=== PATIENT | female | born 1970 | race African-American/Black ===

== ENCOUNTER 2018-03-29 07:08 | Observation (INO) ==
[2018-03-29] MEDS ORDERED: NITROGLYCERIN 2% OINT 1 INCH/GM PACK TOP STA (07:46)
[2018-03-29] MEDS ORDERED: ASPIRIN 325 MG TABLET PO STA (07:46)
[2018-03-29 07:59] LABS: Basophils % 0.2 % (0.0-0.8); Eosinophils % 0.6 % (0.00-10.9); Hematocrit 41.8 VOL% (35.7-47.0); Hemoglobin 13.8 GM/DL (12.0-16.0); Immature Granulocytes % 0.3 %; Immature Granulocytes Absolute 0.02 #; Lymphocytes # 2.1 10*3/uL (1.4-4.0); Lymphocytes % 33.9 % (21.3-54.2); Mean Corpuscular Hemoglobin 31 PG (27-34); Mean Corpuscular Volume 92.9 FL (87-102); Mean Platelet Volume 10.4 FL (9.6-12.0); Monocytes # 0.6 10*3/uL (0.11-0.8); Monocytes % 9.4 % (1.7-12.7); Neutrophils # 3.5 10*3/uL (1.4-7.4); Neutrophils % 55.6 % (38.7-73.9); Platelet Count 341 T/CUMM (130-400); Red Cell Distribution Width 14.6 % (9.3-17.3); White Blood Count 6.3 T/CUMM (4-12)
[2018-03-29 08:26] LABS: INR 0.9; Partial Thromboplastin Time 27.7 SECS (0-40)
[2018-03-29 08:27] LABS: Alanine Aminotransferase 36 U/L (13-56); Albumin 3.7 G/DL (3.4-5.0); Alkaline Phosphatase 104 U/L (45-117); Aspartate Amino Transferase 20 U/L (0-37); Bilirubin,Total < 0.39 MG/DL (0.2-1.0); Blood Urea Nitrogen 17 MG/DL (7-18); Calcium 8.6 MG/DL (8.5-10.1); Glucose 92 MG/DL (74-106); Osmolality,Calculated 282.3 MOS/KG (273-304); Potassium 4.1 MMOL/L (3.5-5.1); Sodium 141 MMOL/L (136-145); Total Protein 7.5 G/DL (6.4-8.3)
[2018-03-29 08:33] LABS: Apearance,Urine CLEAR (Clear); Bilirubin,Urine Negative (Negative); Blood, Urine Negative (Negative); Glucose,Urine (UA) Negative (Negative); Ketones,Urine Negative (Negative); Mucus,Urine Occasional /LPF (Occasional); Nitrite,Urine Negative (Negative); Protein,Urine Negative; RBC,Urine 1 /HPF (0-4); Squamous Epithelial Cell,Urine Occasional /HPF (0-10); Urine Color Yellow (Yellow); Urine Specific Gravity 1.019 (1.001-1.035); Urine Urobilinogen < 2.0 EU/DL (0.2-1.0); WBC,Urine <1 /HPF (0-6)
[2018-03-29 08:41] LABS: Barbiturates Screen,Urine Negative (Negative); Benzodiazepines Screen,Urine Negative (Negative); Cannabinoid Screen,Urine Negative (Negative); Opiate Screen,Urine Negative (Negative); Phencyclidine Screen,Urine Negative (Negative)
[2018-03-29] MEDS ORDERED: MORPHINE 4 MG/1 ML VIAL ONE (09:57)
[2018-03-29] MEDS ORDERED: MEPERIDINE 50 MG/1 ML VIAL ONE (10:04)
[2018-03-29] MEDS ORDERED: MEPERIDINE 50 MG/1 ML VIAL IV STA (10:10)
[2018-03-29] MEDS ORDERED: ACETAMINOPHEN 325 MG TABLET PO PRN (11:50)
[2018-03-29] MEDS: SODIUM CHLORIDE 0.9% 1,000 ML IV SCH ×2 (12:43→21:24)
[2018-03-29] MEDS: PANTOPRAZOLE 40 MG TABLET PO SCH (12:44)
[2018-03-29] MEDS: DOCUSATE SODIUM 100 MG CAPSULE PO SCH ×2 (12:45→21:25)
[2018-03-29] MEDS: ENOXAPARIN 40 MG/0.4 ML SYRINGE SUBCUT SCH (12:45)
[2018-03-29] MEDS ORDERED: PROMETHAZINE 25 MG TABLET PO PRN (14:52)
[2018-03-29] MEDS ORDERED: KETOROLAC 30 MG/1 ML VIAL IV ONE (16:33)
[2018-03-29] MEDS ORDERED: ESCITALOPRAM 10 MG TABLET PO SCH (21:00)
[2018-03-30] MEDS ORDERED: LEVOTHYROXINE 100 MCG TABLET PO SCH (07:00)
[2018-03-30 12:01] VITALS: BP 118/82
[2018-03-30] MEDS: SODIUM CHLORIDE 0.9% 1,000 ML IV SCH ×2 (12:16→13:20)
[2018-03-30] MEDS: DOCUSATE SODIUM 100 MG CAPSULE PO SCH (12:16)
[2018-03-30] MEDS: PANTOPRAZOLE 40 MG TABLET PO SCH (12:16)
[2018-03-30] MEDS: ENOXAPARIN 40 MG/0.4 ML SYRINGE SUBCUT SCH (13:20)
== END 2018-03-30 14:30 | disposition home or self-care (01) ==
LOC: N.ED 07:08 → N.EDINP 07:08 → N.TELES 12:33
PROVIDERS: ADMIT Family Medicine; ATTEND Family Medicine

== ENCOUNTER 2018-09-27 15:22 | Observation (INO) ==
[2018-09-27] MEDS ORDERED: ACETAMINOPHEN 325 MG TABLET PO PRN (15:58)
[2018-09-27] MEDS ORDERED: hydrALAZINE 20 MG/1 ML VIAL IV PRN (16:04)
[2018-09-27] MEDS: PROMETHAZINE 25 MG/1 ML VIAL IM PRN ×2 (16:26→21:24)
[2018-09-27] MEDS: DEXTROSE 5% NACL 0.9% 1,000 ML IV SCH (16:26)
[2018-09-27] MEDS: PANTOPRAZOLE 40 MG VIAL IV SCH (16:27)
[2018-09-27 16:44] LABS: Basophils % 0.3 % (0.0-0.8); Eosinophils # 0.1 10*3/uL (0.0-0.87); Eosinophils % 1.1 % (0.00-10.9); Hemoglobin 13.8 GM/DL (12.0-16.0); Immature Granulocytes % 0.4 %; Immature Granulocytes Absolute 0.03 #; Lymphocytes # 2.6 10*3/uL (1.4-4.0); Lymphocytes % 36.8 % (21.3-54.2); Mean Corpuscular HGB Conc 30.7 GM/DL (32-36); Mean Corpuscular Hemoglobin 29 PG (27-34); Mean Corpuscular Volume 95.1 FL (87-102); Mean Platelet Volume 10.6 FL (9.6-12.0); Monocytes # 0.7 10*3/uL (0.11-0.8); Monocytes % 10.2 % (1.7-12.7); Neutrophils # 3.6 10*3/uL (1.4-7.4); Neutrophils % 51.2 % (38.7-73.9); Platelet Count 417 T/CUMM (130-400); Red Blood Count 4.73 MC/CUMM (3.8-5.5); Red Cell Distribution Width 14.6 % (9.3-17.3); White Blood Count 7.1 T/CUMM (4-12)
[2018-09-27 17:02] LABS: Alanine Aminotransferase 33 U/L (13-56); Albumin 3.5 G/DL (3.4-5.0); Alkaline Phosphatase 103 U/L (45-117); Aspartate Amino Transferase 19 U/L (0-37); Bilirubin,Total < 0.39 MG/DL (0.2-1.0); Blood Urea Nitrogen 14 MG/DL (7-18); Calcium 8.5 MG/DL (8.5-10.1); Glucose 82 MG/DL (74-106); Osmolality,Calculated 276.5 MOS/KG (273-304); Potassium 3.7 MMOL/L (3.5-5.1); Sodium 139 MMOL/L (136-145); Total Protein 7.9 G/DL (6.4-8.3)
[2018-09-27 20:41] LABS: Apearance,Urine CLEAR (Clear); Bilirubin,Urine Negative (Negative); Blood, Urine Negative (Negative); Glucose,Urine (UA) Negative (Negative); Ketones,Urine Negative (Negative); Mucus,Urine Occasional /LPF (Occasional); Nitrite,Urine Negative (Negative); Protein,Urine Negative; RBC,Urine 1 /HPF (0-4); Urine Color Straw (Yellow); Urine Specific Gravity 1.005 (1.001-1.035); Urine Urobilinogen < 2.0 EU/DL (0.2-1.0)
[2018-09-27] MEDS ORDERED: DOCUSATE SODIUM 100 MG CAPSULE PO SCH (21:00)
[2018-09-28] MEDS: DEXTROSE 5% NACL 0.9% 1,000 ML IV SCH ×3 (00:45→18:54)
[2018-09-28 04:56] LABS: Basophils % 0.3 % (0.0-0.8); Eosinophils # 0.1 10*3/uL (0.0-0.87); Hematocrit 38.6 VOL% (35.7-47.0); Hemoglobin 12.1 GM/DL (12.0-16.0); Immature Granulocytes % 0.3 %; Immature Granulocytes Absolute 0.02 #; Lymphocytes # 2.6 10*3/uL (1.4-4.0); Lymphocytes % 41.6 % (21.3-54.2); Mean Corpuscular HGB Conc 31.3 GM/DL (32-36); Mean Corpuscular Hemoglobin 29 PG (27-34); Mean Corpuscular Volume 93.5 FL (87-102); Mean Platelet Volume 10.6 FL (9.6-12.0); Monocytes # 0.8 10*3/uL (0.11-0.8); Monocytes % 13.4 % (1.7-12.7); Neutrophils # 2.7 10*3/uL (1.4-7.4); Neutrophils % 43.4 % (38.7-73.9); Platelet Count 361 T/CUMM (130-400); Red Blood Count 4.13 MC/CUMM (3.8-5.5); Red Cell Distribution Width 14.6 % (9.3-17.3); White Blood Count 6.3 T/CUMM (4-12)
[2018-09-28 05:23] LABS: Osmolality,Calculated 287.7 MOS/KG (273-304); Potassium 3.2 MMOL/L (3.5-5.1)
[2018-09-28] MEDS ORDERED: LEVOTHYROXINE 200 MCG TABLET PO SCH (06:30)
[2018-09-28] MEDS: PANTOPRAZOLE 40 MG VIAL IV SCH (08:21)
[2018-09-28] MEDS: POTASSIUM CHLORIDE 20 MEQ TABLET PO PRN ×4 (14:11→22:36)
[2018-09-28] MEDS: PIPERACILLIN/TAZOBACTAM 3,375 MG in SODIUM CHLORIDE 0.9% 100 ML IV SCH (18:52)
[2018-09-28] MEDS: traMADol 50 MG TABLET PO PRN (22:11)
[2018-09-29] MEDS: PIPERACILLIN/TAZOBACTAM 3,375 MG in SODIUM CHLORIDE 0.9% 100 ML IV SCH ×3 (01:20→17:00)
[2018-09-29] MEDS: DEXTROSE 5% NACL 0.9% 1,000 ML IV SCH ×2 (04:26→15:08)
[2018-09-29] MEDS: PANTOPRAZOLE 40 MG VIAL IV SCH (09:21)
[2018-09-29] MEDS: traMADol 50 MG TABLET PO PRN ×2 (09:21→16:59)
[2018-09-30] MEDS: PIPERACILLIN/TAZOBACTAM 3,375 MG in SODIUM CHLORIDE 0.9% 100 ML IV SCH ×2 (01:16→09:55)
[2018-09-30] MEDS: DEXTROSE 5% NACL 0.9% 1,000 ML IV SCH ×2 (06:34→06:35)
[2018-09-30 07:06] VITALS: BP 114/73
[2018-09-30] MEDS: PANTOPRAZOLE 40 MG VIAL IV SCH (09:54)
== END 2018-09-30 10:46 | disposition home or self-care (01) ==
LOC: N.5E
PROVIDERS: ADMIT Family Medicine; ATTEND Family Medicine

== ENCOUNTER 2019-05-09 12:47 | Observation (INO) ==
[2019-05-09] MEDS ORDERED: MORPHINE 4 MG/1 ML VIAL IV STA (13:16)
[2019-05-09] MEDS ORDERED: NITROGLYCERIN 2% OINT 1 INCH/GM PACK TOP STA (13:16)
[2019-05-09] MEDS ORDERED: ASPIRIN 325 MG TABLET PO STA (13:16)
[2019-05-09] MEDS ORDERED: ENOXAPARIN 100 MG/ML SYRINGE SUBCUT STA (13:16)
[2019-05-09] MEDS ORDERED: ONDANSETRON 4 MG/2 ML VIAL IV STA (13:16)
[2019-05-09 14:15] LABS: Apearance,Urine CLEAR (Clear); Bilirubin,Urine Negative (Negative); Blood, Urine Negative (Negative); Glucose,Urine (UA) Negative (Negative); Hyaline Casts,Urine 1 /LPF (0-3); Ketones,Urine Negative (Negative); Mucus,Urine Occasional /LPF (Occasional); Nitrite,Urine Negative (Negative); Protein,Urine Negative; Squamous Epithelial Cell,Urine Occasional /HPF (0-10); Urine Color Yellow (Yellow); Urine Specific Gravity 1.017 (1.001-1.035); Urine Urobilinogen < 2.0 EU/DL (0.2-1.0); WBC,Urine 1 /HPF (0-6)
[2019-05-09 14:17] LABS: Basophils % 0.3 % (0.0-0.8); Eosinophils # 0.1 10*3/uL (0.0-0.87); Eosinophils % 0.9 % (0.00-10.9); Hematocrit 40.6 VOL% (35.7-47.0); Immature Granulocytes % 0.4 %; Immature Granulocytes Absolute 0.03 #; Lymphocytes # 3.1 10*3/uL (1.4-4.0); Lymphocytes % 40.9 % (21.3-54.2); Mean Corpuscular Volume 92.3 FL (87-102); Mean Platelet Volume 10.2 FL (9.6-12.0); Monocytes % 10.8 % (1.7-12.7); Neutrophils % 46.7 % (38.7-73.9); Platelet Count 359 T/CUMM (130-400); Red Cell Distribution Width 14.2 % (9.3-17.3); White Blood Count 7.6 T/CUMM (4-12)
[2019-05-09 14:35] LABS: PT Patient Result 10.8 SECS (9.6-12.2); Partial Thromboplastin Time 29.4 SECS (20.8-36.0)
[2019-05-09 14:37] LABS: Alanine Aminotransferase 33 U/L (13-56); Albumin 3.2 G/DL (3.4-5.0); Alkaline Phosphatase 110 U/L (45-117); Aspartate Amino Transferase 20 U/L (0-37); Bilirubin,Total < 0.39 MG/DL (0.2-1.0); Blood Urea Nitrogen 14 MG/DL (7-18); Calcium 8.6 MG/DL (8.5-10.1); Estimated Glom Filtration Rate 140 ML/MIN; Glucose 85 MG/DL (74-106); Osmolality,Calculated 278.4 MOS/KG (273-304); Total Protein 7.4 G/DL (6.4-8.3)
[2019-05-09] MEDS ORDERED: DOCUSATE SODIUM 100 MG CAPSULE PO PRN (15:24)
[2019-05-09] MEDS ORDERED: IBUPROFEN 400 MG TABLET PO PRN (15:24)
[2019-05-09] MEDS ORDERED: ZALEPLON 5 MG CAPSULE PO PRN (15:24)
[2019-05-09] MEDS ORDERED: PROMETHAZINE 25 MG/1 ML VIAL IM PRN (15:24)
[2019-05-09] MEDS ORDERED: BISACODYL 5 MG TABLET PO PRN (15:24)
[2019-05-09] MEDS ORDERED: guaiFENesin/DM ER 600-30 MG TABLET PO PRN (15:24)
[2019-05-09] MEDS ORDERED: MAGNESIUM SULF RIDER 2 GM in PREMIX 1 EACH IV PRN (15:43)
[2019-05-09] MEDS ORDERED: MAGNESIUM SULF RIDER 4 GM in PREMIX 1 EACH IV PRN (15:43)
[2019-05-09 15:57] LABS: HDL Cholesterol 45 MG/DL (40-60); Risk Ratio 3.96; Thyroid Stimulating Hormone < 0.005 uIU/ml (0.358-3.74); Triglycerides 73 MG/DL (2-150); VLDL CHOLESTEROL 14.6 MG/DL
[2019-05-09 16:07] LABS: Barbiturates Screen,Urine Negative (Negative); Benzodiazepines Screen,Urine Negative (Negative); Cannabinoid Screen,Urine Negative (Negative); Opiate Screen,Urine Negative (Negative); Phencyclidine Screen,Urine Negative (Negative)
[2019-05-09] MEDS: PANTOPRAZOLE 40 MG TABLET PO SCH (16:20)
[2019-05-09] MEDS ORDERED: INFLUENZA VIRUS VACCINE 0.5 ML SYRINGE IM ONE (17:43)
[2019-05-09] MEDS: NITROGLYCERIN SL 0.4 MG TABLET SL PRN (17:44)
[2019-05-09] MEDS ORDERED: ESCITALOPRAM 10 MG TABLET PO SCH (21:00)
[2019-05-09] MEDS: METOPROLOL TARTRATE 25 MG TABLET PO SCH (22:19)
[2019-05-10 05:12] LABS: Calcium 8.5 MG/DL (8.5-10.1)
[2019-05-10] MEDS ORDERED: LEVOTHYROXINE 200 MCG TABLET PO SCH (06:30)
[2019-05-10] MEDS: NITROGLYCERIN SL 0.4 MG TABLET SL PRN (06:40)
[2019-05-10] MEDS ORDERED: POTASSIUM CHLORIDE 20 MEQ TABLET PO ONE (07:47)
[2019-05-10] MEDS ORDERED: ASPIRIN EC 81 MG TABLET PO SCH (09:00)
[2019-05-10] MEDS: PANTOPRAZOLE 40 MG TABLET PO SCH (11:02)
[2019-05-10] MEDS: METOPROLOL TARTRATE 25 MG TABLET PO SCH (11:04)
[2019-05-10 12:59] VITALS: BP 103/64
[2019-05-10] MEDS ORDERED: ENOXAPARIN 40 MG/0.4 ML SYRINGE SUBCUT SCH (13:30)
== END 2019-05-10 16:11 | disposition home or self-care (01) ==
LOC: N.EDINP 12:47 → N.ED 12:47 → N.2W 16:31
PROVIDERS: ADMIT Hospitalist; ATTEND Hospitalist

== ENCOUNTER 2020-05-22 12:50 | Inpatient (IN) ==
[2020-05-22 14:21] LABS: Basophils % 0.1 % (0.0-0.8); Eosinophils # 0.1 10*3/uL (0.0-0.87); Eosinophils % 0.7 % (0.00-10.9); Hematocrit 40.9 VOL% (35.7-47.0); Hemoglobin 13.3 GM/DL (12.0-16.0); Immature Granulocytes % 0.3 %; Immature Granulocytes Absolute 0.03 #; Lymphocytes # 2.5 10*3/uL (1.4-4.0); Lymphocytes % 26.4 % (21.3-54.2); Mean Corpuscular HGB Conc 32.5 GM/DL (32-36); Mean Platelet Volume 9.5 FL (9.6-12.0); Monocytes % 9.4 % (1.7-12.7); Neutrophils % 63.1 % (38.7-73.9); Platelet Count 373 T/CUMM (130-400); Red Blood Count 4.35 MC/CUMM (3.8-5.5); Red Cell Distribution Width 14.2 % (9.3-17.3); White Blood Count 9.4 T/CUMM (4-12)
[2020-05-22 14:35] LABS: Bilirubin,Urine Negative (Negative); Blood, Urine Negative (Negative); Glucose,Urine (UA) Negative (Negative); Ketones,Urine Negative (Negative); Nitrite,Urine Negative (Negative); Protein,Urine Negative; RBC,Urine 2 /HPF (0-4); Squamous Epithelial Cell,Urine Occasional /HPF (0-10); Urine Appearance CLEAR (Clear); Urine Color Yellow (Yellow); Urine Specific Gravity > 1.060 (1.001-1.035); WBC,Urine 9 /HPF (0-6)
[2020-05-22] MEDS: SODIUM CHLORIDE 0.9% 1,000 ML IV SCH (15:07)
[2020-05-22] MEDS: HYDROmorphone 2 MG/1 ML VIAL IV PRN ×3 (15:09→23:03)
[2020-05-22] MEDS: PIPERACILLIN/TAZOBACTAM 3,375 MG in SODIUM CHLORIDE 0.9% 100 ML IV SCH (16:26)
[2020-05-22] MEDS: PROMETHAZINE 25 MG/1 ML VIAL IM PRN (19:37)
[2020-05-22] MEDS: DOCUSATE SODIUM 100 MG CAPSULE PO SCH (23:09)
[2020-05-22] MEDS ORDERED: traZODone 50 MG TABLET PO ONE (23:18)
[2020-05-22] MEDS ORDERED: SERTRALINE 100 MG TABLET PO ONE (23:19)
[2020-05-23] MEDS: PIPERACILLIN/TAZOBACTAM 3,375 MG in SODIUM CHLORIDE 0.9% 100 ML IV SCH ×3 (00:28→16:21)
[2020-05-23] MEDS: HYDROmorphone 2 MG/1 ML VIAL IV PRN ×4 (05:01→21:56)
[2020-05-23] MEDS: PROMETHAZINE 25 MG/1 ML VIAL IM PRN (05:02)
[2020-05-23 05:45] LABS: Basophils % 0.3 % (0.0-0.8); Eosinophils # 0.1 10*3/uL (0.0-0.87); Eosinophils % 1.2 % (0.00-10.9); Hematocrit 36.4 VOL% (35.7-47.0); Hemoglobin 11.8 GM/DL (12.0-16.0); Immature Granulocytes % 0.4 %; Immature Granulocytes Absolute 0.03 #; Lymphocytes % 26.3 % (21.3-54.2); Mean Corpuscular HGB Conc 32.4 GM/DL (32-36); Mean Corpuscular Volume 94.1 FL (87-102); Mean Platelet Volume 9.7 FL (9.6-12.0); Monocytes % 11.2 % (1.7-12.7); Neutrophils % 60.6 % (38.7-73.9); Platelet Count 318 T/CUMM (130-400); Red Blood Count 3.87 MC/CUMM (3.8-5.5); Red Cell Distribution Width 14.2 % (9.3-17.3); White Blood Count 7.6 T/CUMM (4-12)
[2020-05-23] MEDS: PANTOPRAZOLE 40 MG TABLET PO SCH (06:29)
[2020-05-23] MEDS: LEVOTHYROXINE 125 MCG TABLET PO SCH (06:29)
[2020-05-23] MEDS: SODIUM CHLORIDE 0.9% 1,000 ML IV SCH ×3 (08:43→16:23)
[2020-05-23] MEDS: DOCUSATE SODIUM 100 MG CAPSULE PO SCH ×2 (08:43→20:24)
[2020-05-23] MEDS: ENOXAPARIN 40 MG/0.4 ML SYRINGE SUBCUT SCH (08:46)
[2020-05-23] MEDS ORDERED: PANTOPRAZOLE 40 MG VIAL IV SCH (09:00)
[2020-05-23 10:20] LABS: Osmolality,Calculated 274.5 MOS/KG (273-304)
[2020-05-23] MEDS: POTASSIUM CHLORIDE 20 MEQ TABLET PO PRN ×3 (12:23→16:21)
[2020-05-23] MEDS: traZODone 50 MG TABLET PO SCH (20:23)
[2020-05-23] MEDS: SERTRALINE 100 MG TABLET PO SCH (20:23)
[2020-05-24] MEDS: PIPERACILLIN/TAZOBACTAM 3,375 MG in SODIUM CHLORIDE 0.9% 100 ML IV SCH ×3 (01:37→17:40)
[2020-05-24] MEDS: SODIUM CHLORIDE 0.9% 1,000 ML IV SCH ×3 (01:38→16:00)
[2020-05-24] MEDS: LEVOTHYROXINE 125 MCG TABLET PO SCH (06:09)
[2020-05-24] MEDS: PANTOPRAZOLE 40 MG TABLET PO SCH (06:09)
[2020-05-24] MEDS: HYDROmorphone 2 MG/1 ML VIAL IV PRN ×4 (06:11→20:54)
[2020-05-24] MEDS: ENOXAPARIN 40 MG/0.4 ML SYRINGE SUBCUT SCH (08:26)
[2020-05-24] MEDS: ASPIRIN EC 81 MG TABLET PO SCH (08:26)
[2020-05-24] MEDS: DOCUSATE SODIUM 100 MG CAPSULE PO SCH ×2 (08:26→20:54)
[2020-05-24] MEDS: traZODone 50 MG TABLET PO SCH (20:53)
[2020-05-24] MEDS: SERTRALINE 100 MG TABLET PO SCH (20:54)
[2020-05-25] MEDS: PIPERACILLIN/TAZOBACTAM 3,375 MG in SODIUM CHLORIDE 0.9% 100 ML IV SCH ×3 (00:55→16:16)
[2020-05-25] MEDS: LEVOTHYROXINE 125 MCG TABLET PO SCH (06:28)
[2020-05-25] MEDS: PANTOPRAZOLE 40 MG TABLET PO SCH (06:28)
[2020-05-25] MEDS: SODIUM CHLORIDE 0.9% 1,000 ML IV SCH ×3 (09:17→21:30)
[2020-05-25] MEDS: ASPIRIN EC 81 MG TABLET PO SCH (09:21)
[2020-05-25] MEDS: ACETAMINOPHEN 325 MG TABLET PO PRN (09:21)
[2020-05-25] MEDS: ENOXAPARIN 40 MG/0.4 ML SYRINGE SUBCUT SCH (09:22)
[2020-05-25] MEDS: DOCUSATE SODIUM 100 MG CAPSULE PO SCH ×2 (09:23→20:46)
[2020-05-25] MEDS: traMADol 50 MG TABLET PO PRN ×2 (12:34→20:44)
[2020-05-25] MEDS: traZODone 50 MG TABLET PO SCH (20:44)
[2020-05-25] MEDS: SERTRALINE 100 MG TABLET PO SCH (20:44)
[2020-05-25] MEDS ORDERED: IBUPROFEN 400 MG TABLET PO PRN (21:00)
[2020-05-25] MEDS ORDERED: HYDROmorphone 2 MG/1 ML VIAL IV ONE (22:48)
[2020-05-26] MEDS: SODIUM CHLORIDE 0.9% 1,000 ML IV SCH ×4 (00:05→23:52)
[2020-05-26] MEDS: PIPERACILLIN/TAZOBACTAM 3,375 MG in SODIUM CHLORIDE 0.9% 100 ML IV SCH ×3 (00:06→17:48)
[2020-05-26] MEDS: ACETAMINOPHEN 325 MG TABLET PO PRN ×4 (03:03→17:48)
[2020-05-26] MEDS: traMADol 50 MG TABLET PO PRN ×3 (03:04→20:29)
[2020-05-26] MEDS: PANTOPRAZOLE 40 MG TABLET PO SCH (06:25)
[2020-05-26] MEDS: LEVOTHYROXINE 125 MCG TABLET PO SCH (06:25)
[2020-05-26 06:57] LABS: Basophils % 0.3 % (0.0-0.8); Eosinophils # 0.1 10*3/uL (0.0-0.87); Eosinophils % 1.6 % (0.00-10.9); Hematocrit 33.7 VOL% (35.7-47.0); Hemoglobin 10.8 GM/DL (12.0-16.0); Immature Granulocytes % 0.6 %; Immature Granulocytes Absolute 0.04 #; Lymphocytes # 2.8 10*3/uL (1.4-4.0); Lymphocytes % 45.1 % (21.3-54.2); Mean Corpuscular Volume 95.2 FL (87-102); Monocytes % 8.9 % (1.7-12.7); Neutrophils % 43.5 % (38.7-73.9); Platelet Count 372 T/CUMM (130-400); Red Blood Count 3.54 MC/CUMM (3.8-5.5); Red Cell Distribution Width 14.6 % (9.3-17.3); White Blood Count 6.3 T/CUMM (4-12)
[2020-05-26 07:13] LABS: Calcium 7.7 MG/DL (8.5-10.1); Osmolality,Calculated 279.1 MOS/KG (273-304)
[2020-05-26] MEDS: ASPIRIN EC 81 MG TABLET PO SCH (08:56)
[2020-05-26] MEDS: ENOXAPARIN 40 MG/0.4 ML SYRINGE SUBCUT SCH (08:56)
[2020-05-26] MEDS: DOCUSATE SODIUM 100 MG CAPSULE PO SCH ×2 (08:56→20:28)
[2020-05-26] MEDS: POTASSIUM CHLORIDE 20 MEQ TABLET PO PRN ×3 (08:57→13:09)
[2020-05-26] MEDS: traZODone 50 MG TABLET PO SCH (20:29)
[2020-05-26] MEDS: SERTRALINE 100 MG TABLET PO SCH (20:29)
[2020-05-27] MEDS: PIPERACILLIN/TAZOBACTAM 3,375 MG in SODIUM CHLORIDE 0.9% 100 ML IV SCH ×2 (01:09→09:52)
[2020-05-27] MEDS: ACETAMINOPHEN 325 MG TABLET PO PRN ×2 (01:11→11:30)
[2020-05-27] MEDS: LEVOTHYROXINE 125 MCG TABLET PO SCH (06:30)
[2020-05-27] MEDS: PANTOPRAZOLE 40 MG TABLET PO SCH (06:30)
[2020-05-27] MEDS: traMADol 50 MG TABLET PO PRN ×3 (06:30→20:52)
[2020-05-27] MEDS: ENOXAPARIN 40 MG/0.4 ML SYRINGE SUBCUT SCH (09:52)
[2020-05-27] MEDS: DOCUSATE SODIUM 100 MG CAPSULE PO SCH ×2 (09:52→20:49)
[2020-05-27] MEDS: ASPIRIN EC 81 MG TABLET PO SCH (09:52)
[2020-05-27] MEDS: metroNIDAZOLE INJ 500 MG in PREMIX 1 EACH IV SCH ×2 (14:30→20:53)
[2020-05-27] MEDS: PROMETHAZINE 25 MG/1 ML VIAL IM PRN ×2 (14:38→20:48)
[2020-05-27] MEDS: CIPROFLOXACIN INJ 400 MG in PREMIX 1 EACH IV SCH (17:07)
[2020-05-27] MEDS: SODIUM CHLORIDE 0.9% 1,000 ML IV SCH (20:45)
[2020-05-27] MEDS: traZODone 50 MG TABLET PO SCH (20:48)
[2020-05-27] MEDS: SERTRALINE 100 MG TABLET PO SCH (20:48)
[2020-05-28] MEDS: PROMETHAZINE 25 MG/1 ML VIAL IM PRN ×4 (03:20→21:19)
[2020-05-28] MEDS: metroNIDAZOLE INJ 500 MG in PREMIX 1 EACH IV SCH ×4 (03:22→21:21)
[2020-05-28] MEDS: CIPROFLOXACIN INJ 400 MG in PREMIX 1 EACH IV SCH ×2 (05:20→17:03)
[2020-05-28] MEDS: LEVOTHYROXINE 125 MCG TABLET PO SCH (06:58)
[2020-05-28] MEDS: PANTOPRAZOLE 40 MG TABLET PO SCH (06:58)
[2020-05-28 08:13] LABS: Basophils % 0.3 % (0.0-0.8); Eosinophils # 0.1 10*3/uL (0.0-0.87); Eosinophils % 1.7 % (0.00-10.9); Hematocrit 37.8 VOL% (35.7-47.0); Hemoglobin 11.9 GM/DL (12.0-16.0); Immature Granulocytes % 0.8 %; Immature Granulocytes Absolute 0.05 #; Lymphocytes # 2.4 10*3/uL (1.4-4.0); Lymphocytes % 37.3 % (21.3-54.2); Mean Corpuscular HGB Conc 31.5 GM/DL (32-36); Mean Corpuscular Volume 95.2 FL (87-102); Mean Platelet Volume 9.7 FL (9.6-12.0); Neutrophils % 49.9 % (38.7-73.9); Platelet Count 393 T/CUMM (130-400); Red Blood Count 3.97 MC/CUMM (3.8-5.5); Red Cell Distribution Width 14.9 % (9.3-17.3); White Blood Count 6.3 T/CUMM (4-12)
[2020-05-28] MEDS: DOCUSATE SODIUM 100 MG CAPSULE PO SCH ×2 (09:55→21:22)
[2020-05-28] MEDS: ASPIRIN EC 81 MG TABLET PO SCH (09:55)
[2020-05-28] MEDS: traMADol 50 MG TABLET PO PRN (09:55)
[2020-05-28] MEDS: ENOXAPARIN 40 MG/0.4 ML SYRINGE SUBCUT SCH (09:58)
[2020-05-28] MEDS: SODIUM CHLORIDE 0.9% 1,000 ML IV SCH ×4 (10:44→23:00)
[2020-05-28] MEDS: SERTRALINE 100 MG TABLET PO SCH (21:22)
[2020-05-28] MEDS: traZODone 50 MG TABLET PO SCH (21:22)
[2020-05-29] MEDS: metroNIDAZOLE INJ 500 MG in PREMIX 1 EACH IV SCH ×2 (03:20→08:15)
[2020-05-29] MEDS: PROMETHAZINE 25 MG/1 ML VIAL IM PRN (03:20)
[2020-05-29] MEDS: SODIUM CHLORIDE 0.9% 1,000 ML IV SCH ×2 (03:53→08:15)
[2020-05-29] MEDS: PANTOPRAZOLE 40 MG TABLET PO SCH (05:53)
[2020-05-29] MEDS: LEVOTHYROXINE 125 MCG TABLET PO SCH (05:53)
[2020-05-29] MEDS: CIPROFLOXACIN INJ 400 MG in PREMIX 1 EACH IV SCH (05:59)
[2020-05-29 08:04] VITALS: BP 126/88
== END 2020-05-29 09:20 | disposition home or self-care (01) | DRG 392 ==
LOC: PREOBSVTOIN 13:11 → N.5E 13:21
PROVIDERS: ADMIT Family Medicine; ATTEND Family Medicine

== ENCOUNTER 2020-07-13 08:08 | Inpatient (IN) ==
[2020-07-13] MEDS ORDERED: ONDANSETRON 4 MG/2 ML VIAL ONE (10:34)
[2020-07-13] MEDS ORDERED: PROMETHAZINE 25 MG/1 ML VIAL ONE (10:44)
[2020-07-13] MEDS ORDERED: PROMETHAZINE INJ 25 MG in SODIUM CHLORIDE 0.9% 50 ML IV STA (10:51)
[2020-07-13 12:07] LABS: Basophils % 0.3 % (0.0-0.8); Eosinophils # 0.1 10*3/uL (0.0-0.87); Eosinophils % 0.8 % (0.00-10.9); Hemoglobin 12.1 GM/DL (12.0-16.0); Immature Granulocytes % 0.3 %; Immature Granulocytes Absolute 0.02 #; Lymphocytes # 2.8 10*3/uL (1.4-4.0); Lymphocytes % 42.4 % (21.3-54.2); Mean Corpuscular HGB Conc 32.7 GM/DL (32-36); Mean Corpuscular Volume 93.9 FL (87-102); Mean Platelet Volume 9.7 FL (9.6-12.0); Monocytes % 9.4 % (1.7-12.7); Neutrophils % 46.8 % (38.7-73.9); Platelet Count 361 T/CUMM (130-400); Red Blood Count 3.94 MC/CUMM (3.8-5.5); Red Cell Distribution Width 15.5 % (9.3-17.3); White Blood Count 6.6 T/CUMM (4-12)
[2020-07-13 12:28] LABS: Alanine Aminotransferase 25 U/L (13-56); Albumin 3.1 G/DL (3.4-5.0); Alkaline Phosphatase 76 U/L (45-117); Amylase 32 U/L (25-115); Aspartate Amino Transferase 26 U/L (0-37); Bilirubin,Total < 0.39 MG/DL (0.2-1.0); Blood Urea Nitrogen 14 MG/DL (7-18); Calcium 8.2 MG/DL (8.5-10.1); Estimated Glom Filtration Rate 165 ML/MIN; Glucose 81 MG/DL (74-106); Osmolality,Calculated 280.3 MOS/KG (273-304); Total Protein 7.1 G/DL (6.4-8.3)
[2020-07-13] MEDS ORDERED: PROMETHAZINE 25 MG TABLET PO PRN (14:05)
[2020-07-13] MEDS ORDERED: ACETAMINOPHEN 325 MG TABLET PO PRN (14:05)
[2020-07-13] MEDS ORDERED: traMADol 50 MG TABLET PO PRN (14:35)
[2020-07-13] MEDS: PROMETHAZINE 25 MG/1 ML VIAL IM PRN (17:14)
[2020-07-13] MEDS: ACETAMINOPHEN/CODEINE 300-30 MG TABLET PO PRN (17:14)
[2020-07-13] MEDS: SODIUM CHLORIDE 0.9% 1,000 ML IV SCH (17:30)
[2020-07-13] MEDS: PIPERACILLIN/TAZOBACTAM 3,375 MG in SODIUM CHLORIDE 0.9% 100 ML IV SCH (17:30)
[2020-07-13 20:06] LABS: Bacteria,Urine Occasional /HPF (Few); Bilirubin,Urine Negative (Negative); Blood, Urine Negative (Negative); Glucose,Urine (UA) Negative (Negative); Ketones,Urine Negative (Negative); Mucus,Urine Occasional /LPF (Occasional); Nitrite,Urine Negative (Negative); Protein,Urine Negative; Squamous Epithelial Cell,Urine Occasional /HPF (0-10); Urine Appearance CLEAR (Clear); Urine Color Yellow (Yellow); Urine Specific Gravity 1.059 (1.001-1.035); Urine Urobilinogen < 2.0 EU/DL (0.2-1.0)
[2020-07-13] MEDS: traZODone 50 MG TABLET PO SCH (20:36)
[2020-07-13] MEDS: SERTRALINE 100 MG TABLET PO SCH (20:36)
[2020-07-13] MEDS: DOCUSATE SODIUM 100 MG CAPSULE PO SCH (20:36)
[2020-07-13] MEDS: ENOXAPARIN 40 MG/0.4 ML SYRINGE SUBCUT SCH (20:37)
[2020-07-14] MEDS: PIPERACILLIN/TAZOBACTAM 3,375 MG in SODIUM CHLORIDE 0.9% 100 ML IV SCH ×2 (00:39→09:57)
[2020-07-14 05:45] LABS: Basophils % 0.3 % (0.0-0.8); Eosinophils # 0.1 10*3/uL (0.0-0.87); Eosinophils % 1.1 % (0.00-10.9); Hematocrit 36.6 VOL% (35.7-47.0); Hemoglobin 12.1 GM/DL (12.0-16.0); Immature Granulocytes % 0.5 %; Immature Granulocytes Absolute 0.03 #; Lymphocytes # 2.5 10*3/uL (1.4-4.0); Lymphocytes % 41.5 % (21.3-54.2); Mean Corpuscular HGB Conc 33.1 GM/DL (32-36); Mean Corpuscular Volume 94.1 FL (87-102); Mean Platelet Volume 9.9 FL (9.6-12.0); Neutrophils % 46.6 % (38.7-73.9); Platelet Count 358 T/CUMM (130-400); Red Blood Count 3.89 MC/CUMM (3.8-5.5); Red Cell Distribution Width 15.6 % (9.3-17.3); White Blood Count 6.1 T/CUMM (4-12)
[2020-07-14] MEDS: LEVOTHYROXINE 125 MCG TABLET PO SCH (05:46)
[2020-07-14 06:03] LABS: Calcium 7.6 MG/DL (8.5-10.1); Osmolality,Calculated 280.3 MOS/KG (273-304)
[2020-07-14] MEDS: ASPIRIN EC 81 MG TABLET PO SCH (09:55)
[2020-07-14] MEDS: DOCUSATE SODIUM 100 MG CAPSULE PO SCH ×2 (09:55→20:30)
[2020-07-14] MEDS: PANTOPRAZOLE 40 MG VIAL IV SCH (09:56)
[2020-07-14] MEDS: ACETAMINOPHEN/CODEINE 300-30 MG TABLET PO PRN ×3 (09:56→22:29)
[2020-07-14] MEDS: ERTAPENEM 1,000 MG in SODIUM CHLORIDE 0.9% 100 ML IV SCH (16:41)
[2020-07-14] MEDS: SODIUM CHLORIDE 0.9% 1,000 ML IV SCH ×4 (19:05→20:40)
[2020-07-14] MEDS: SERTRALINE 100 MG TABLET PO SCH (20:31)
[2020-07-14] MEDS: ENOXAPARIN 40 MG/0.4 ML SYRINGE SUBCUT SCH (20:31)
[2020-07-14] MEDS: traZODone 50 MG TABLET PO SCH (20:31)
[2020-07-15] MEDS: ACETAMINOPHEN/CODEINE 300-30 MG TABLET PO PRN (04:39)
[2020-07-15] MEDS: SODIUM CHLORIDE 0.9% 1,000 ML IV SCH ×3 (04:42→20:15)
[2020-07-15] MEDS: LEVOTHYROXINE 125 MCG TABLET PO SCH (07:24)
[2020-07-15] MEDS: DOCUSATE SODIUM 100 MG CAPSULE PO SCH ×2 (09:56→20:14)
[2020-07-15] MEDS: ASPIRIN EC 81 MG TABLET PO SCH (09:56)
[2020-07-15] MEDS: PANTOPRAZOLE 40 MG VIAL IV SCH (10:00)
[2020-07-15] MEDS ORDERED: HYDROmorphone 2 MG/1 ML VIAL IV PRN (10:51)
[2020-07-15] MEDS ORDERED: MAGNESIUM CITRATE 300 ML BOTTLE PO ONE (11:00)
[2020-07-15] MEDS: ERTAPENEM 1,000 MG in SODIUM CHLORIDE 0.9% 100 ML IV SCH (15:58)
[2020-07-15] MEDS: PROMETHAZINE 25 MG/1 ML VIAL IM PRN (18:43)
[2020-07-15] MEDS: traZODone 50 MG TABLET PO SCH (20:14)
[2020-07-15] MEDS: SERTRALINE 100 MG TABLET PO SCH (20:14)
[2020-07-16] MEDS: SODIUM CHLORIDE 0.9% 1,000 ML IV SCH ×3 (03:49→23:05)
[2020-07-16] MEDS: HYDROmorphone 2 MG/1 ML VIAL IV PRN ×5 (04:55→22:25)
[2020-07-16] MEDS: LEVOTHYROXINE 125 MCG TABLET PO SCH (05:54)
[2020-07-16] MEDS ORDERED: MIDAZOLAM 2 MG/2 ML VIAL ONE (06:35)
[2020-07-16] MEDS ORDERED: fentaNYL 250 MCG/5 ML VIAL ONE (06:35)
[2020-07-16] MEDS ORDERED: BUPIVACAINE 0.5% 50 ML VIAL ONE (06:40)
[2020-07-16] MEDS ORDERED: FAMOTIDINE 20 MG/2 ML VIAL IV ONE (06:44)
[2020-07-16] MEDS ORDERED: ePHEDrine 50 MG/ML VIAL ONE (07:23)
[2020-07-16] MEDS ORDERED: SEVOFLURANE 1 UNIT/15 MINUTE INH ONE ×3 (07:34→09:29)
[2020-07-16] MEDS ORDERED: LIDOCAINE 2% 5 ML VIAL ONE (07:34)
[2020-07-16] MEDS ORDERED: ACETAMINOPHEN 1,000 MG/100 ML VIAL IV ONE ×3 (07:34→09:29)
[2020-07-16] MEDS ORDERED: LACTATED RINGERS 1,000 ML IV ONE ×2 (07:34→09:29)
[2020-07-16] MEDS ORDERED: GLYCOPYRROLATE 0.4 MG/2 ML VIAL ONE ×3 (07:34→10:00)
[2020-07-16] MEDS ORDERED: ROCURONIUM 50 MG/5 ML VIAL IV ONE ×2 (07:34→07:48)
[2020-07-16] MEDS ORDERED: propofoL 200 MG/20 ML VIAL IV ONE (07:34)
[2020-07-16] MEDS ORDERED: SUCCINYLCHOLINE 200 MG/10 ML VIAL ONE (07:34)
[2020-07-16] MEDS ORDERED: diphenhydrAMINE 50 MG/1 ML VIAL ONE (07:53)
[2020-07-16] MEDS ORDERED: fentaNYL 100 MCG/2 ML VIAL ONE ×2 (08:01→08:34)
[2020-07-16] MEDS ORDERED: LABETALOL 20 MG/4 ML SYRINGE IV ONE (08:06)
[2020-07-16] MEDS ORDERED: NEOSTIGMINE 10 MG/10 ML VIAL ONE (09:17)
[2020-07-16] MEDS ORDERED: KETOROLAC 30 MG/1 ML VIAL ONE (09:28)
[2020-07-16] MEDS ORDERED: HYDROmorphone 2 MG/1 ML VIAL ONE (09:33)
[2020-07-16] MEDS ORDERED: KETOROLAC 15 MG/1 ML VIAL IV PRN (09:55)
[2020-07-16] MEDS ORDERED: ALBUTEROL/IPRATROPIUM 3 ML NEB RESP TX PRN (09:55)
[2020-07-16] MEDS ORDERED: HYDROmorphone PCA 30 MG/30 ML SYRINGE IV SCH (10:00)
[2020-07-16] MEDS ORDERED: NALOXONE 0.4 MG/ML VIAL IV PRN (10:04)
[2020-07-16 10:20] LABS: Bilirubin,Urine Negative (Negative); Blood, Urine Small mg/dL (Negative); Glucose,Urine (UA) Negative (Negative); Ketones,Urine 20 mg/dL (Negative); Mucus,Urine Occasional /LPF (Occasional); Nitrite,Urine Negative (Negative); Protein,Urine Negative; RBC,Urine 3 /HPF (0-4); Squamous Epithelial Cell,Urine Occasional /HPF (0-10); Urine Appearance CLEAR (Clear); Urine Color Straw (Yellow); Urine Specific Gravity 1.013 (1.001-1.035); Urine Urobilinogen < 2.0 EU/DL (0.2-1.0); WBC,Urine 1 /HPF (0-6)
[2020-07-16] MEDS: DOCUSATE SODIUM 100 MG CAPSULE PO SCH ×2 (11:30→21:04)
[2020-07-16] MEDS: ASPIRIN EC 81 MG TABLET PO SCH (11:30)
[2020-07-16] MEDS ORDERED: SODIUM CHLORIDE 0.9% 1,000 ML IV ONE (12:00)
[2020-07-16] MEDS ORDERED: KETOROLAC 30 MG/1 ML VIAL IV ONE (12:00)
[2020-07-16] MEDS: PANTOPRAZOLE 40 MG VIAL IV SCH (14:51)
[2020-07-16] MEDS: PROMETHAZINE 25 MG/1 ML VIAL IM PRN (14:52)
[2020-07-16] MEDS: cefOXitin 2,000 MG in SYRINGE 1 EACH IV SCH ×2 (15:03→21:04)
[2020-07-16] MEDS: traZODone 50 MG TABLET PO SCH (21:05)
[2020-07-16] MEDS: SERTRALINE 100 MG TABLET PO SCH (21:05)
[2020-07-16] MEDS: ENOXAPARIN 40 MG/0.4 ML SYRINGE SUBCUT SCH ×2 (21:08→21:39)
[2020-07-17] MEDS: HYDROmorphone 2 MG/1 ML VIAL IV PRN ×3 (01:57→07:29)
[2020-07-17] MEDS: cefOXitin 2,000 MG in SYRINGE 1 EACH IV SCH (01:58)
[2020-07-17] MEDS: SODIUM CHLORIDE 0.9% 1,000 ML IV SCH ×3 (05:40→22:26)
[2020-07-17] MEDS: LEVOTHYROXINE 125 MCG TABLET PO SCH (05:53)
[2020-07-17 06:12] LABS: Basophils % 0.1 % (0.0-0.8); Hematocrit 37.1 VOL% (35.7-47.0); Immature Granulocytes % 0.4 %; Immature Granulocytes Absolute 0.03 #; Lymphocytes # 1.3 10*3/uL (1.4-4.0); Lymphocytes % 18.8 % (21.3-54.2); Mean Corpuscular HGB Conc 32.3 GM/DL (32-36); Mean Corpuscular Volume 94.9 FL (87-102); Monocytes % 9.4 % (1.7-12.7); Neutrophils % 71.3 % (38.7-73.9); Platelet Count 302 T/CUMM (130-400); Red Blood Count 3.91 MC/CUMM (3.8-5.5); Red Cell Distribution Width 15.9 % (9.3-17.3); White Blood Count 7.1 T/CUMM (4-12)
[2020-07-17 06:49] LABS: Calcium 7.4 MG/DL (8.5-10.1); Osmolality,Calculated 274.5 MOS/KG (273-304)
[2020-07-17] MEDS ORDERED: HYDROmorphone PCA 30 MG/30 ML SYRINGE IV SCH (09:30)
[2020-07-17] MEDS: DOCUSATE SODIUM 100 MG CAPSULE PO SCH (09:46)
[2020-07-17] MEDS: ASPIRIN EC 81 MG TABLET PO SCH (09:46)
[2020-07-17] MEDS: PANTOPRAZOLE 40 MG VIAL IV SCH (09:48)
[2020-07-17] MEDS: KETOROLAC 15 MG/1 ML VIAL IV SCH ×3 (10:24→22:18)
[2020-07-17] MEDS: ENOXAPARIN 40 MG/0.4 ML SYRINGE SUBCUT SCH (21:12)
[2020-07-17] MEDS: SERTRALINE 100 MG TABLET PO SCH (21:12)
[2020-07-17] MEDS: traZODone 50 MG TABLET PO SCH (21:12)
[2020-07-18] MEDS: KETOROLAC 15 MG/1 ML VIAL IV SCH ×4 (05:37→21:01)
[2020-07-18 06:21] LABS: Basophils % 0.1 % (0.0-0.8); Eosinophils % 0.3 % (0.00-10.9); Hematocrit 33.4 VOL% (35.7-47.0); Hemoglobin 10.6 GM/DL (12.0-16.0); Immature Granulocytes % 0.4 %; Immature Granulocytes Absolute 0.03 #; Lymphocytes # 1.6 10*3/uL (1.4-4.0); Lymphocytes % 20.2 % (21.3-54.2); Mean Corpuscular HGB Conc 31.7 GM/DL (32-36); Mean Corpuscular Volume 96.3 FL (87-102); Mean Platelet Volume 10.5 FL (9.6-12.0); Monocytes % 10.7 % (1.7-12.7); Neutrophils % 68.3 % (38.7-73.9); Platelet Count 248 T/CUMM (130-400); Red Blood Count 3.47 MC/CUMM (3.8-5.5); White Blood Count 7.8 T/CUMM (4-12)
[2020-07-18 06:39] LABS: Calcium 7.3 MG/DL (8.5-10.1); Osmolality,Calculated 277.3 MOS/KG (273-304)
[2020-07-18] MEDS: SODIUM CHLORIDE 0.9% 1,000 ML IV SCH ×3 (07:25→16:11)
[2020-07-18] MEDS: LEVOTHYROXINE 125 MCG TABLET PO SCH (09:58)
[2020-07-18] MEDS: ASPIRIN EC 81 MG TABLET PO SCH (09:58)
[2020-07-18] MEDS: PANTOPRAZOLE 40 MG VIAL IV SCH (10:01)
[2020-07-18] MEDS: ENOXAPARIN 40 MG/0.4 ML SYRINGE SUBCUT SCH (20:54)
[2020-07-18] MEDS: SERTRALINE 100 MG TABLET PO SCH (20:55)
[2020-07-18] MEDS: traZODone 50 MG TABLET PO SCH (20:55)
[2020-07-19] MEDS: FAMOTIDINE 20 MG TABLET PO PRN ×2 (00:22→22:15)
[2020-07-19] MEDS: KETOROLAC 15 MG/1 ML VIAL IV SCH ×4 (04:57→22:04)
[2020-07-19] MEDS: LEVOTHYROXINE 125 MCG TABLET PO SCH (05:34)
[2020-07-19] MEDS: ASPIRIN EC 81 MG TABLET PO SCH (08:45)
[2020-07-19] MEDS: PANTOPRAZOLE 40 MG VIAL IV SCH (08:45)
[2020-07-19] MEDS: PROMETHAZINE 25 MG/1 ML VIAL IM PRN (12:48)
[2020-07-19] MEDS: SODIUM CHLORIDE 0.9% 1,000 ML IV SCH (16:44)
[2020-07-19] MEDS: traZODone 50 MG TABLET PO SCH (20:48)
[2020-07-19] MEDS: SERTRALINE 100 MG TABLET PO SCH (20:48)
[2020-07-19] MEDS: ENOXAPARIN 40 MG/0.4 ML SYRINGE SUBCUT SCH (20:50)
[2020-07-20] MEDS: PROMETHAZINE 25 MG/1 ML VIAL IM PRN ×4 (01:17→22:16)
[2020-07-20] MEDS: KETOROLAC 15 MG/1 ML VIAL IV SCH ×4 (03:54→22:16)
[2020-07-20] MEDS: LEVOTHYROXINE 125 MCG TABLET PO SCH (05:38)
[2020-07-20 05:50] LABS: Calcium 7.5 MG/DL (8.5-10.1)
[2020-07-20 05:55] LABS: Basophils % 0.4 % (0.0-0.8); Eosinophils # 0.1 10*3/uL (0.0-0.87); Eosinophils % 1.4 % (0.00-10.9); Hematocrit 28.3 VOL% (35.7-47.0); Hemoglobin 9.3 GM/DL (12.0-16.0); Immature Granulocytes % 0.4 %; Immature Granulocytes Absolute 0.02 #; Lymphocytes # 1.3 10*3/uL (1.4-4.0); Lymphocytes % 22.9 % (21.3-54.2); Mean Corpuscular HGB Conc 32.9 GM/DL (32-36); Mean Corpuscular Volume 93.1 FL (87-102); Mean Platelet Volume 10.6 FL (9.6-12.0); Monocytes % 10.1 % (1.7-12.7); Neutrophils % 64.8 % (38.7-73.9); Platelet Count 277 T/CUMM (130-400); Red Blood Count 3.04 MC/CUMM (3.8-5.5); Red Cell Distribution Width 15.5 % (9.3-17.3); White Blood Count 5.7 T/CUMM (4-12)
[2020-07-20] MEDS: PANTOPRAZOLE 40 MG VIAL IV SCH (09:14)
[2020-07-20] MEDS: ASPIRIN EC 81 MG TABLET PO SCH (09:17)
[2020-07-20] MEDS: POTASSIUM CHLORIDE RIDER 10 MEQ in PREMIX 1 EACH IV SCH ×5 (10:38→21:02)
[2020-07-20] MEDS: traZODone 50 MG TABLET PO SCH (21:01)
[2020-07-20] MEDS: SERTRALINE 100 MG TABLET PO SCH (21:02)
[2020-07-20] MEDS: ENOXAPARIN 40 MG/0.4 ML SYRINGE SUBCUT SCH (21:05)
[2020-07-20] MEDS ORDERED: PANTOPRAZOLE 40 MG VIAL IV ONE (22:59)
[2020-07-21] MEDS: POTASSIUM CHLORIDE RIDER 10 MEQ in PREMIX 1 EACH IV SCH ×6 (01:26→22:16)
[2020-07-21] MEDS: KETOROLAC 15 MG/1 ML VIAL IV SCH ×4 (04:01→21:49)
[2020-07-21 05:45] LABS: Basophils % 0.2 % (0.0-0.8); Eosinophils # 0.1 10*3/uL (0.0-0.87); Eosinophils % 1.2 % (0.00-10.9); Hematocrit 29.4 VOL% (35.7-47.0); Hemoglobin 9.4 GM/DL (12.0-16.0); Immature Granulocytes % 0.5 %; Immature Granulocytes Absolute 0.03 #; Lymphocytes # 1.7 10*3/uL (1.4-4.0); Lymphocytes % 30.4 % (21.3-54.2); Mean Corpuscular Volume 93.9 FL (87-102); Monocytes % 9.5 % (1.7-12.7); Neutrophils % 58.2 % (38.7-73.9); Platelet Count 291 T/CUMM (130-400); Red Blood Count 3.13 MC/CUMM (3.8-5.5); Red Cell Distribution Width 15.4 % (9.3-17.3); White Blood Count 5.7 T/CUMM (4-12)
[2020-07-21 06:10] LABS: Calcium 7.7 MG/DL (8.5-10.1); Osmolality,Calculated 279.1 MOS/KG (273-304)
[2020-07-21] MEDS: LEVOTHYROXINE 125 MCG TABLET PO SCH (07:33)
[2020-07-21] MEDS: ASPIRIN EC 81 MG TABLET PO SCH (09:34)
[2020-07-21] MEDS: PANTOPRAZOLE 40 MG VIAL IV SCH ×2 (09:37→21:49)
[2020-07-21] MEDS: PROMETHAZINE 25 MG/1 ML VIAL IM PRN ×2 (11:52→22:03)
[2020-07-21] MEDS: ENOXAPARIN 40 MG/0.4 ML SYRINGE SUBCUT SCH (21:48)
[2020-07-21] MEDS: SODIUM CHLOR 0.9% KCL 20 MEQ 20 MEQ/1,000 ML BAG IV SCH (22:11)
[2020-07-21] MEDS: traZODone 50 MG TABLET PO SCH (22:16)
[2020-07-21] MEDS: SERTRALINE 100 MG TABLET PO SCH (22:16)
[2020-07-21] MEDS: DOCUSATE SODIUM 100 MG CAPSULE PO SCH (22:18)
[2020-07-22] MEDS: POTASSIUM CHLORIDE RIDER 10 MEQ in PREMIX 1 EACH IV SCH (02:20)
[2020-07-22] MEDS: KETOROLAC 15 MG/1 ML VIAL IV SCH (03:38)
[2020-07-22] MEDS: PROMETHAZINE 25 MG/1 ML VIAL IM PRN ×2 (05:27→09:14)
[2020-07-22] MEDS: SODIUM CHLOR 0.9% KCL 20 MEQ 20 MEQ/1,000 ML BAG IV SCH (05:44)
[2020-07-22 05:45] LABS: Basophils % 0.1 % (0.0-0.8); Eosinophils # 0.1 10*3/uL (0.0-0.87); Eosinophils % 1.8 % (0.00-10.9); Hematocrit 29.9 VOL% (35.7-47.0); Hemoglobin 9.9 GM/DL (12.0-16.0); Immature Granulocytes % 0.8 %; Immature Granulocytes Absolute 0.06 #; Lymphocytes # 2.1 10*3/uL (1.4-4.0); Lymphocytes % 28.6 % (21.3-54.2); Mean Corpuscular HGB Conc 33.1 GM/DL (32-36); Mean Corpuscular Volume 91.4 FL (87-102); Monocytes % 6.7 % (1.7-12.7); Platelet Count 315 T/CUMM (130-400); Red Blood Count 3.27 MC/CUMM (3.8-5.5); Red Cell Distribution Width 15.2 % (9.3-17.3); White Blood Count 7.2 T/CUMM (4-12)
[2020-07-22 06:03] LABS: Calcium 7.7 MG/DL (8.5-10.1); Osmolality,Calculated 277.3 MOS/KG (273-304)
[2020-07-22 06:14] LABS: Hypochromasia 1+; Lymphocytes 23 % (20-55); Microcytosis 1+; Platelet Estimate Adequate; Segmented Neutrophils 69 % (50-85); Total Cells Counted 100
[2020-07-22] MEDS: LEVOTHYROXINE 125 MCG TABLET PO SCH (07:32)
[2020-07-22] MEDS: PANTOPRAZOLE 40 MG VIAL IV SCH ×3 (09:14→21:17)
[2020-07-22] MEDS: ASPIRIN EC 81 MG TABLET PO SCH (14:59)
[2020-07-22] MEDS: DOCUSATE SODIUM 100 MG CAPSULE PO SCH ×2 (14:59→21:04)
[2020-07-22] MEDS: LACTATED RINGERS 1,000 ML IV SCH (19:56)
[2020-07-22] MEDS: SERTRALINE 100 MG TABLET PO SCH (21:04)
[2020-07-22] MEDS: ENOXAPARIN 40 MG/0.4 ML SYRINGE SUBCUT SCH (21:04)
[2020-07-22] MEDS: traZODone 50 MG TABLET PO SCH (21:04)
[2020-07-23] MEDS: PROMETHAZINE 25 MG/1 ML VIAL IM PRN ×2 (02:40→20:44)
[2020-07-23] MEDS: LEVOTHYROXINE 125 MCG TABLET PO SCH (06:07)
[2020-07-23] MEDS: HYDROmorphone 2 MG/1 ML VIAL IV PRN ×2 (08:05→15:11)
[2020-07-23] MEDS: LACTATED RINGERS 1,000 ML IV SCH ×2 (08:12→23:21)
[2020-07-23] MEDS: DOCUSATE SODIUM 100 MG CAPSULE PO SCH (10:55)
[2020-07-23] MEDS: ASPIRIN EC 81 MG TABLET PO SCH (11:14)
[2020-07-23] MEDS: PANTOPRAZOLE 40 MG VIAL IV SCH ×2 (11:15→20:45)
[2020-07-23] MEDS: CIPROFLOXACIN INJ 400 MG in PREMIX 1 EACH IV SCH (18:09)
[2020-07-23] MEDS: traZODone 50 MG TABLET PO SCH (20:44)
[2020-07-23] MEDS: SERTRALINE 100 MG TABLET PO SCH (20:44)
[2020-07-23] MEDS: LACTOBACILLUS ACIDOPHILUS/BULGARICUS CHEW TABLET PO SCH (20:45)
[2020-07-24 05:55] LABS: Basophils % 0.1 % (0.0-0.8); Eosinophils # 0.1 10*3/uL (0.0-0.87); Eosinophils % 0.7 % (0.00-10.9); Hematocrit 28.5 VOL% (35.7-47.0); Hemoglobin 9.5 GM/DL (12.0-16.0); Immature Granulocytes % 1.2 %; Immature Granulocytes Absolute 0.11 #; Lymphocytes # 1.4 10*3/uL (1.4-4.0); Lymphocytes % 15.3 % (21.3-54.2); Mean Corpuscular HGB Conc 33.3 GM/DL (32-36); Mean Corpuscular Volume 90.8 FL (87-102); Mean Platelet Volume 10.2 FL (9.6-12.0); Monocytes % 5.6 % (1.7-12.7); Neutrophils % 77.1 % (38.7-73.9); Platelet Count 362 T/CUMM (130-400); Red Blood Count 3.14 MC/CUMM (3.8-5.5); Red Cell Distribution Width 15.2 % (9.3-17.3); White Blood Count 9.2 T/CUMM (4-12)
[2020-07-24] MEDS: LEVOTHYROXINE 125 MCG TABLET PO SCH (06:06)
[2020-07-24] MEDS: CIPROFLOXACIN INJ 400 MG in PREMIX 1 EACH IV SCH (06:07)
[2020-07-24 06:26] LABS: Calcium 7.7 MG/DL (8.5-10.1); Osmolality,Calculated 273.5 MOS/KG (273-304)
[2020-07-24] MEDS ORDERED: POTASSIUM CHLORIDE 20 MEQ TABLET PO PRN (09:34)
[2020-07-24] MEDS: PANTOPRAZOLE 40 MG VIAL IV SCH (09:39)
[2020-07-24] MEDS ORDERED: POTASSIUM CHLORIDE 20 MEQ TABLET PO ONE (10:00)
[2020-07-24] MEDS: ASPIRIN EC 81 MG TABLET PO SCH (10:11)
[2020-07-24] MEDS: LACTOBACILLUS ACIDOPHILUS/BULGARICUS CHEW TABLET PO SCH ×2 (10:12→20:59)
[2020-07-24] MEDS ORDERED: CYCLOBENZAPRINE 10 MG TABLET PO PRN (13:19)
[2020-07-24] MEDS: KETOROLAC 10 MG TABLET PO SCH ×3 (13:29→23:28)
[2020-07-24] MEDS: SIMETHICONE CHEW 125 MG TABLET PO PRN ×2 (13:29→23:27)
[2020-07-24] MEDS: PROMETHAZINE 25 MG/1 ML VIAL IM PRN (15:52)
[2020-07-24] MEDS: LACTATED RINGERS 1,000 ML IV SCH (17:02)
[2020-07-24] MEDS: traZODone 50 MG TABLET PO SCH (20:56)
[2020-07-24] MEDS: PANTOPRAZOLE 40 MG TABLET PO SCH (20:57)
[2020-07-24] MEDS: SERTRALINE 100 MG TABLET PO SCH (20:57)
[2020-07-24] MEDS: CIPROFLOXACIN 500 MG TABLET PO SCH (20:57)
[2020-07-25 06:07] LABS: Calcium 7.7 MG/DL (8.5-10.1); Osmolality,Calculated 275.4 MOS/KG (273-304)
[2020-07-25] MEDS: LEVOTHYROXINE 125 MCG TABLET PO SCH (06:27)
[2020-07-25] MEDS: KETOROLAC 10 MG TABLET PO SCH ×3 (06:27→17:00)
[2020-07-25] MEDS: PANTOPRAZOLE 40 MG TABLET PO SCH (08:49)
[2020-07-25] MEDS: FAMOTIDINE 20 MG TABLET PO PRN (08:51)
[2020-07-25] MEDS: CIPROFLOXACIN 500 MG TABLET PO SCH (08:51)
[2020-07-25 08:55] LABS: Basophils % 0.1 % (0.0-0.8); Eosinophils # 0.1 10*3/uL (0.0-0.87); Eosinophils % 0.7 % (0.00-10.9); Hematocrit 30.4 VOL% (35.7-47.0); Immature Granulocytes % 1.2 %; Immature Granulocytes Absolute 0.12 #; Lymphocytes # 1.5 10*3/uL (1.4-4.0); Lymphocytes % 14.7 % (21.3-54.2); Mean Corpuscular HGB Conc 32.9 GM/DL (32-36); Mean Corpuscular Volume 91.8 FL (87-102); Mean Platelet Volume 10.9 FL (9.6-12.0); Monocytes % 3.6 % (1.7-12.7); Neutrophils % 79.7 % (38.7-73.9); Platelet Count 450 T/CUMM (130-400); Red Blood Count 3.31 MC/CUMM (3.8-5.5); Red Cell Distribution Width 15.7 % (9.3-17.3); White Blood Count 9.9 T/CUMM (4-12)
[2020-07-25] MEDS ORDERED: MAGNESIUM SULF RIDER 2 GM in PREMIX 1 EACH IV ONE (09:00)
[2020-07-25] MEDS: ALBUTEROL/IPRATROPIUM 3 ML NEB RESP TX SCH ×2 (09:00→16:13)
[2020-07-25] MEDS ORDERED: MAGNESIUM SULF RIDER 4 GM in PREMIX 1 EACH IV PRN (09:03)
[2020-07-25] MEDS ORDERED: POTASSIUM CHLORIDE 20 MEQ TABLET PO ONE (09:03)
[2020-07-25] MEDS ORDERED: MAGNESIUM SULF RIDER 2 GM in PREMIX 1 EACH IV PRN (09:03)
[2020-07-25] MEDS: LEVOFLOXACIN INJ 750 MG in PREMIX 1 EACH IV SCH ×3 (11:40→16:12)
[2020-07-25] MEDS: ASPIRIN EC 81 MG TABLET PO SCH (11:40)
[2020-07-25] MEDS: POTASSIUM CHLORIDE 20 MEQ TABLET PO SCH (11:41)
[2020-07-25] MEDS: LACTOBACILLUS ACIDOPHILUS/BULGARICUS CHEW TABLET PO SCH ×2 (11:41→21:38)
[2020-07-25] MEDS: PANTOPRAZOLE 40 MG VIAL IV SCH ×2 (13:19→21:42)
[2020-07-25] MEDS: LACTATED RINGERS 1,000 ML IV SCH (14:17)
[2020-07-25] MEDS: PROMETHAZINE 25 MG/1 ML VIAL IM PRN ×2 (14:35→19:45)
[2020-07-25] MEDS: VANCOMYCIN INJ 2,000 MG in SODIUM CHLORIDE 0.9% 250 ML IV SCH (15:40)
[2020-07-25] MEDS ORDERED: CIPROFLOXACIN INJ 400 MG in PREMIX 1 EACH IV SCH (18:00)
[2020-07-25] MEDS: traZODone 50 MG TABLET PO SCH (21:38)
[2020-07-25] MEDS: methylPREDNISolone SOD SUC 40 MG/1 ML VIAL IV SCH (21:38)
[2020-07-25] MEDS: BUDESONIDE/FORMOTEROL 160-4.5 INHALER 6 GM INH SCH (21:38)
[2020-07-25] MEDS: FAMOTIDINE 20 MG TABLET PO SCH (21:38)
[2020-07-25] MEDS: ENOXAPARIN 40 MG/0.4 ML SYRINGE SUBCUT SCH (21:38)
[2020-07-25] MEDS: SERTRALINE 100 MG TABLET PO SCH (21:38)
[2020-07-25] MEDS: PIPERACILLIN/TAZOBACTAM 3,375 MG in SODIUM CHLORIDE 0.9% 100 ML IV SCH (21:40)
[2020-07-26] MEDS: KETOROLAC 10 MG TABLET PO SCH ×4 (00:22→19:06)
[2020-07-26] MEDS: LACTATED RINGERS 1,000 ML IV SCH ×3 (02:20→17:27)
[2020-07-26] MEDS: methylPREDNISolone SOD SUC 40 MG/1 ML VIAL IV SCH ×3 (03:40→21:48)
[2020-07-26] MEDS: PIPERACILLIN/TAZOBACTAM 3,375 MG in SODIUM CHLORIDE 0.9% 100 ML IV SCH ×3 (03:45→21:48)
[2020-07-26] MEDS: VANCOMYCIN INJ 2,000 MG in SODIUM CHLORIDE 0.9% 250 ML IV SCH ×2 (03:51→17:27)
[2020-07-26 05:12] LABS: Basophils # 0.1 10*3/uL (0.0-0.2); Basophils % 0.4 % (0.0-0.8); Eosinophils % 0.1 % (0.00-10.9); Hematocrit 30.1 VOL% (35.7-47.0); Immature Granulocytes % 2.6 %; Immature Granulocytes Absolute 0.43 #; Lymphocytes # 1.1 10*3/uL (1.4-4.0); Lymphocytes % 6.7 % (21.3-54.2); Mean Corpuscular HGB Conc 33.2 GM/DL (32-36); Mean Corpuscular Volume 90.7 FL (87-102); Mean Platelet Volume 10.8 FL (9.6-12.0); Monocytes % 4.8 % (1.7-12.7); Neutrophils % 85.4 % (38.7-73.9); Platelet Count 475 T/CUMM (130-400); Red Blood Count 3.32 MC/CUMM (3.8-5.5); Red Cell Distribution Width 15.4 % (9.3-17.3); White Blood Count 16.4 T/CUMM (4-12)
[2020-07-26 05:42] LABS: Albumin 2.1 G/DL (3.4-5.0); Bilirubin,Total 0.5 MG/DL (0.2-1.0); Calcium 7.5 MG/DL (8.5-10.1); Osmolality,Calculated 276.5 MOS/KG (273-304); Total Protein 6.7 G/DL (6.4-8.3)
[2020-07-26] MEDS: LEVOTHYROXINE 125 MCG TABLET PO SCH (06:04)
[2020-07-26 06:20] LABS: Band Neutrophils 8 % (0-10); Lymphocytes 5 % (20-55); Platelet Estimate Increased; Segmented Neutrophils 84 % (50-85); Total Cells Counted 100
[2020-07-26 06:21] LABS: Hypochromasia Slight
[2020-07-26] MEDS: ASPIRIN EC 81 MG TABLET PO SCH (10:03)
[2020-07-26] MEDS: FAMOTIDINE 20 MG TABLET PO SCH ×2 (10:03→21:49)
[2020-07-26] MEDS: LACTOBACILLUS ACIDOPHILUS/BULGARICUS CHEW TABLET PO SCH ×2 (10:03→22:08)
[2020-07-26] MEDS: POTASSIUM CHLORIDE 20 MEQ TABLET PO SCH (10:03)
[2020-07-26] MEDS ORDERED: MIDAZOLAM 2 MG/2 ML VIAL IV ONE (11:12)
[2020-07-26] MEDS ORDERED: fentaNYL 100 MCG/2 ML VIAL IV ONE (11:12)
[2020-07-26] MEDS ORDERED: DIAZEPAM 5 MG TABLET PO ONE (11:12)
[2020-07-26] MEDS ORDERED: SODIUM CHLORIDE 0.45% 1,000 ML IV SCH (11:30)
[2020-07-26] MEDS: BUDESONIDE/FORMOTEROL 160-4.5 INHALER 6 GM INH SCH ×2 (12:50→22:08)
[2020-07-26] MEDS: PANTOPRAZOLE 40 MG VIAL IV SCH ×2 (12:50→21:47)
[2020-07-26] MEDS ORDERED: REMDESIVIR 200 MG in SODIUM CHLORIDE 0.9% 210 ML IV ONE (13:00)
[2020-07-26 13:12] LABS: INR 1.4; PT Patient Result 14.6 SECS (9.8-11.9)
[2020-07-26] MEDS ORDERED: SODIUM CHLORIDE 0.9% 1,000 ML IV PRN (15:47)
[2020-07-26] MEDS: FAT EMULSION 20% 250 ML IV SCH (15:57)
[2020-07-26] MEDS: ZINC/COPPER/MANGANESE/SELENIUM 1 ML, MULTIVITAMIN INJ 10 ML in AMINO ACIDS/DEXT/LYTES 4... IV SCH (16:00)
[2020-07-26] MEDS ORDERED: DEXTROSE 10% 1,000 ML IV PRN (17:00)
[2020-07-26] MEDS: HYDROmorphone 2 MG/1 ML VIAL IV PRN ×2 (17:26→22:33)
[2020-07-26] MEDS: LEVOFLOXACIN INJ 750 MG in PREMIX 1 EACH IV SCH (17:28)
[2020-07-26] MEDS: ENOXAPARIN 40 MG/0.4 ML SYRINGE SUBCUT SCH (21:47)
[2020-07-26] MEDS: PROMETHAZINE 25 MG/1 ML VIAL IM PRN (21:48)
[2020-07-26] MEDS: traZODone 50 MG TABLET PO SCH (21:49)
[2020-07-26] MEDS: SERTRALINE 100 MG TABLET PO SCH (21:50)
[2020-07-27] MEDS: KETOROLAC 10 MG TABLET PO SCH ×4 (01:41→17:32)
[2020-07-27] MEDS: traZODone 50 MG TABLET PO SCH ×2 (01:43→23:15)
[2020-07-27] MEDS: FAMOTIDINE 20 MG TABLET PO SCH ×3 (01:43→23:16)
[2020-07-27] MEDS: LACTOBACILLUS ACIDOPHILUS/BULGARICUS CHEW TABLET PO SCH ×3 (01:43→23:16)
[2020-07-27] MEDS: SERTRALINE 100 MG TABLET PO SCH ×2 (01:43→23:17)
[2020-07-27] MEDS: VANCOMYCIN INJ 2,000 MG in SODIUM CHLORIDE 0.9% 250 ML IV SCH ×2 (03:56→16:59)
[2020-07-27] MEDS: methylPREDNISolone SOD SUC 40 MG/1 ML VIAL IV SCH ×3 (05:20→21:48)
[2020-07-27 05:55] LABS: Basophils % 0.3 % (0.0-0.8); Hematocrit 29.3 VOL% (35.7-47.0); Hemoglobin 9.7 GM/DL (12.0-16.0); Immature Granulocytes % 6.7 %; Immature Granulocytes Absolute 1.04 #; Lymphocytes # 1.1 10*3/uL (1.4-4.0); Mean Corpuscular HGB Conc 33.1 GM/DL (32-36); Mean Corpuscular Volume 90.7 FL (87-102); Monocytes % 5.1 % (1.7-12.7); Neutrophils % 80.9 % (38.7-73.9); Platelet Count 482 T/CUMM (130-400); Red Blood Count 3.23 MC/CUMM (3.8-5.5); Red Cell Distribution Width 15.7 % (9.3-17.3); White Blood Count 15.6 T/CUMM (4-12)
[2020-07-27 06:10] LABS: Calcium 7.7 MG/DL (8.5-10.1); Osmolality,Calculated 282.4 MOS/KG (273-304)
[2020-07-27 06:25] LABS: Band Neutrophils 2 % (0-10); Hypochromasia 1+; Lymphocytes 4 % (20-55); Microcytosis 1+; Platelet Estimate Adequate; Segmented Neutrophils 87 % (50-85); Total Cells Counted 100
[2020-07-27] MEDS: LEVOTHYROXINE 125 MCG TABLET PO SCH (06:37)
[2020-07-27] MEDS: PIPERACILLIN/TAZOBACTAM 3,375 MG in SODIUM CHLORIDE 0.9% 100 ML IV SCH ×3 (07:09→23:15)
[2020-07-27] MEDS: LACTATED RINGERS 1,000 ML IV SCH ×2 (07:09→11:31)
[2020-07-27] MEDS: ASPIRIN EC 81 MG TABLET PO SCH (09:41)
[2020-07-27] MEDS: POTASSIUM CHLORIDE 20 MEQ TABLET PO SCH (09:41)
[2020-07-27] MEDS: PANTOPRAZOLE 40 MG VIAL IV SCH ×2 (10:24→21:48)
[2020-07-27] MEDS: REMDESIVIR 100 MG in SODIUM CHLORIDE 0.9% 100 ML IV SCH (10:24)
[2020-07-27] MEDS: BUDESONIDE/FORMOTEROL 160-4.5 INHALER 6 GM INH SCH ×2 (10:25→21:48)
[2020-07-27] MEDS ORDERED: FUROSEMIDE 40 MG/4 ML VIAL IV ONE (11:20)
[2020-07-27] MEDS: PROMETHAZINE 25 MG/1 ML VIAL IM PRN (14:26)
[2020-07-27] MEDS: HYDROmorphone 2 MG/1 ML VIAL IV PRN ×2 (14:26→21:48)
[2020-07-27] MEDS: LEVOFLOXACIN INJ 750 MG in PREMIX 1 EACH IV SCH (14:28)
[2020-07-27] MEDS: FAT EMULSION 20% 250 ML IV SCH (17:08)
[2020-07-27] MEDS: ZINC/COPPER/MANGANESE/SELENIUM 1 ML in AMINO ACIDS/DEXT/LYTES 4.25-5% 2,000 ML IV SCH (17:09)
[2020-07-27] MEDS: ENOXAPARIN 40 MG/0.4 ML SYRINGE SUBCUT SCH (21:48)
[2020-07-28] MEDS: HYDROmorphone 2 MG/1 ML VIAL IV PRN ×4 (03:26→23:38)
[2020-07-28] MEDS: methylPREDNISolone SOD SUC 40 MG/1 ML VIAL IV SCH ×2 (03:28→12:25)
[2020-07-28] MEDS: KETOROLAC 10 MG TABLET PO SCH ×4 (03:29→18:00)
[2020-07-28] MEDS: VANCOMYCIN INJ 2,000 MG in SODIUM CHLORIDE 0.9% 250 ML IV SCH (03:29)
[2020-07-28] MEDS: SODIUM CHLORIDE 0.9% 1,000 ML IV SCH (03:30)
[2020-07-28 05:50] LABS: Calcium 7.9 MG/DL (8.5-10.1); Osmolality,Calculated 288.3 MOS/KG (273-304)
[2020-07-28] MEDS: PIPERACILLIN/TAZOBACTAM 3,375 MG in SODIUM CHLORIDE 0.9% 100 ML IV SCH ×2 (06:22→23:46)
[2020-07-28] MEDS: POTASSIUM CHLORIDE 20 MEQ TABLET PO SCH (08:59)
[2020-07-28] MEDS: LEVOTHYROXINE 125 MCG TABLET PO SCH (08:59)
[2020-07-28] MEDS: ASPIRIN EC 81 MG TABLET PO SCH (08:59)
[2020-07-28] MEDS: FAMOTIDINE 20 MG TABLET PO SCH (09:00)
[2020-07-28] MEDS: LACTOBACILLUS ACIDOPHILUS/BULGARICUS CHEW TABLET PO SCH (09:00)
[2020-07-28] MEDS: PANTOPRAZOLE 40 MG VIAL IV SCH ×2 (09:04→22:00)
[2020-07-28] MEDS: BUDESONIDE/FORMOTEROL 160-4.5 INHALER 6 GM INH SCH ×2 (09:06→22:02)
[2020-07-28] MEDS: REMDESIVIR 100 MG in SODIUM CHLORIDE 0.9% 100 ML IV SCH (12:20)
[2020-07-28] MEDS: PROMETHAZINE INJ 12.5 MG in SODIUM CHLORIDE 0.9% 50 ML IV PRN (13:50)
[2020-07-28] MEDS: FAT EMULSION 20% 250 ML IV SCH (14:15)
[2020-07-28] MEDS: LEVOFLOXACIN INJ 750 MG in PREMIX 1 EACH IV SCH (14:15)
[2020-07-28] MEDS: VANCOMYCIN INJ 2,000 MG in SODIUM CHLORIDE 0.9% 500 ML IV SCH (16:15)
[2020-07-28] MEDS: ZINC/COPPER/MANGANESE/SELENIUM 1 ML in AMINO ACIDS/DEXT/LYTES 4.25-5% 2,000 ML IV SCH (16:20)
[2020-07-28] MEDS: ENOXAPARIN 40 MG/0.4 ML SYRINGE SUBCUT SCH (22:00)
[2020-07-29] MEDS: methylPREDNISolone SOD SUC 40 MG/1 ML VIAL IV SCH ×4 (04:52→21:14)
[2020-07-29] MEDS: LACTOBACILLUS ACIDOPHILUS/BULGARICUS CHEW TABLET PO SCH ×3 (04:53→21:14)
[2020-07-29] MEDS: traZODone 50 MG TABLET PO SCH ×2 (04:53→21:14)
[2020-07-29] MEDS: FAMOTIDINE 20 MG TABLET PO SCH ×3 (04:54→21:14)
[2020-07-29] MEDS: SERTRALINE 100 MG TABLET PO SCH ×2 (05:16→21:14)
[2020-07-29] MEDS: KETOROLAC 10 MG TABLET PO SCH ×3 (05:16→13:21)
[2020-07-29] MEDS: PIPERACILLIN/TAZOBACTAM 3,375 MG in SODIUM CHLORIDE 0.9% 100 ML IV SCH ×3 (05:16→21:26)
[2020-07-29] MEDS: LEVOTHYROXINE 125 MCG TABLET PO SCH (08:18)
[2020-07-29] MEDS: VANCOMYCIN INJ 2,000 MG in SODIUM CHLORIDE 0.9% 500 ML IV SCH ×2 (08:20→21:46)
[2020-07-29] MEDS: SODIUM CHLORIDE 0.9% 1,000 ML IV SCH (08:20)
[2020-07-29] MEDS ORDERED: POTASSIUM CHLORIDE RIDER 10 MEQ in PREMIX 1 EACH IV PRN (09:52)
[2020-07-29] MEDS: BUDESONIDE/FORMOTEROL 160-4.5 INHALER 6 GM INH SCH ×2 (10:30→21:14)
[2020-07-29] MEDS: PANTOPRAZOLE 40 MG VIAL IV SCH ×2 (10:30→21:17)
[2020-07-29] MEDS: REMDESIVIR 100 MG in SODIUM CHLORIDE 0.9% 100 ML IV SCH (10:30)
[2020-07-29] MEDS: HYDROmorphone 2 MG/1 ML VIAL IV PRN (10:40)
[2020-07-29] MEDS: PROMETHAZINE INJ 12.5 MG in SODIUM CHLORIDE 0.9% 50 ML IV PRN (12:35)
[2020-07-29] MEDS: POTASSIUM CHLORIDE 20 MEQ TABLET PO SCH (13:21)
[2020-07-29] MEDS: ASPIRIN EC 81 MG TABLET PO SCH (14:31)
[2020-07-29] MEDS: ZINC/COPPER/MANGANESE/SELENIUM 1 ML, MULTIVITAMIN INJ 10 ML in AMINO ACIDS/DEXT/LYTES 4... IV SCH (16:00)
[2020-07-29] MEDS: FAT EMULSION 20% 250 ML IV SCH (16:00)
[2020-07-29] MEDS: LEVOFLOXACIN INJ 750 MG in PREMIX 1 EACH IV SCH (17:55)
[2020-07-29] MEDS: ENOXAPARIN 40 MG/0.4 ML SYRINGE SUBCUT SCH (21:14)
[2020-07-30] MEDS ORDERED: hydrALAZINE 20 MG/1 ML VIAL IV ONE (00:47)
[2020-07-30] MEDS: SODIUM CHLORIDE 0.9% 1,000 ML IV SCH (02:30)
[2020-07-30 04:44] LABS: Basophils # 0.1 10*3/uL (0.0-0.2); Basophils % 0.5 % (0.0-0.8); Hematocrit 32.6 VOL% (35.7-47.0); Hemoglobin 11.1 GM/DL (12.0-16.0); Immature Granulocytes % 9.6 %; Immature Granulocytes Absolute 1.27 #; Lymphocytes % 15.1 % (21.3-54.2); Mean Corpuscular Volume 87.9 FL (87-102); Mean Platelet Volume 10.6 FL (9.6-12.0); Monocytes % 7.8 % (1.7-12.7); Platelet Count 843 T/CUMM (130-400); Red Blood Count 3.71 MC/CUMM (3.8-5.5); Red Cell Distribution Width 15.3 % (9.3-17.3); White Blood Count 13.3 T/CUMM (4-12)
[2020-07-30 05:08] LABS: Band Neutrophils 1 % (0-10); Hypochromasia 1+; Lymphocytes 13 % (20-55); Microcytosis 1+; Platelet Estimate Increased; Segmented Neutrophils 76 % (50-85); Total Cells Counted 100
[2020-07-30 05:12] LABS: Calcium 8.2 MG/DL (8.5-10.1); Osmolality,Calculated 289.1 MOS/KG (273-304)
[2020-07-30] MEDS: methylPREDNISolone SOD SUC 40 MG/1 ML VIAL IV SCH ×2 (05:40→12:25)
[2020-07-30] MEDS: PIPERACILLIN/TAZOBACTAM 3,375 MG in SODIUM CHLORIDE 0.9% 100 ML IV SCH ×2 (05:45→12:32)
[2020-07-30] MEDS: LEVOTHYROXINE 125 MCG TABLET PO SCH (06:05)
[2020-07-30] MEDS: ASPIRIN EC 81 MG TABLET PO SCH (09:40)
[2020-07-30] MEDS: FAMOTIDINE 20 MG TABLET PO SCH (09:40)
[2020-07-30] MEDS: BUDESONIDE/FORMOTEROL 160-4.5 INHALER 6 GM INH SCH (09:40)
[2020-07-30] MEDS: VANCOMYCIN INJ 2,000 MG in SODIUM CHLORIDE 0.9% 500 ML IV SCH (09:40)
[2020-07-30] MEDS: PANTOPRAZOLE 40 MG VIAL IV SCH (09:40)
[2020-07-30] MEDS: POTASSIUM CHLORIDE 20 MEQ TABLET PO SCH (10:18)
[2020-07-30] MEDS: LACTOBACILLUS ACIDOPHILUS/BULGARICUS CHEW TABLET PO SCH (10:18)
[2020-07-30 11:47] VITALS: BP 126/91
[2020-07-30] MEDS: REMDESIVIR 100 MG in SODIUM CHLORIDE 0.9% 100 ML IV SCH (12:31)
[2020-07-30] MEDS: FAT EMULSION 20% 250 ML IV SCH (14:07)
== END 2020-07-30 15:55 | disposition home or self-care (01) | DRG 329 ==
LOC: N.ED 08:08 → N.EDINP 14:05 → N.3E 15:40 → N.2E 07-25 16:05
PROVIDERS: ADMIT Family Medicine; ATTEND Family Medicine

== ENCOUNTER 2021-01-08 09:58 | Observation (INO) ==
[2021-01-08] MEDS ORDERED: ACETAMINOPHEN 325 MG TABLET PO PRN (15:28)
[2021-01-08] MEDS ORDERED: PROMETHAZINE 25 MG TABLET PO PRN (15:28)
[2021-01-08] MEDS ORDERED: SEMAGLUTIDE SUBCUT SCH (15:45)
[2021-01-08 15:52] LABS: Basophils % 0.2 % (0.0-0.8); Eosinophils # 0.1 10*3/uL (0.0-0.87); Eosinophils % 0.7 % (0.00-10.9); Hematocrit 38.2 VOL% (35.7-47.0); Immature Granulocytes % 0.6 %; Immature Granulocytes Absolute 0.05 #; Lymphocytes # 2.4 10*3/uL (1.4-4.0); Lymphocytes % 27.1 % (21.3-54.2); Mean Corpuscular HGB Conc 31.4 GM/DL (32-36); Mean Corpuscular Volume 91.2 FL (87-102); Mean Platelet Volume 9.2 FL (9.6-12.0); Monocytes % 7.3 % (1.7-12.7); Neutrophils % 64.1 % (38.7-73.9); Platelet Count 329 T/CUMM (130-400); Red Blood Count 4.19 MC/CUMM (3.8-5.5); Red Cell Distribution Width 16.7 % (9.3-17.3)
[2021-01-08 16:14] LABS: Alanine Aminotransferase 25 U/L (13-56); Albumin 3.4 G/DL (3.4-5.0); Alkaline Phosphatase 92 U/L (45-117); Aspartate Amino Transferase 13 U/L (0-37); Bilirubin,Total < 0.39 MG/DL (0.2-1.0); Blood Urea Nitrogen 8 MG/DL (7-18); Calcium 8.3 MG/DL (8.5-10.1); Carbon Dioxide 28 MMOL/L (21-32); Estimated Glom Filtration Rate 119 ML/MIN; Glucose 80 MG/DL (74-106); Osmolality,Calculated 277.3 MOS/KG (273-304); Sodium 141 MMOL/L (136-145); Total Protein 7.9 G/DL (6.4-8.2)
[2021-01-08] MEDS: LACTATED RINGERS 1,000 ML IV SCH (16:40)
[2021-01-08] MEDS ORDERED: POTASSIUM CHLORIDE 20 MEQ TABLET PO PRN (17:33)
[2021-01-08] MEDS ORDERED: POLYETHYLENE GLYCOL POWDER 255 GM BOTTLE PO ONE (18:00)
[2021-01-08] MEDS: SERTRALINE 100 MG TABLET PO SCH (21:27)
[2021-01-08] MEDS: traZODone 50 MG TABLET PO SCH (21:28)
[2021-01-09] MEDS: LACTATED RINGERS 1,000 ML IV SCH ×4 (00:11→17:21)
[2021-01-09 05:24] LABS: Basophils % 0.4 % (0.0-0.8); Eosinophils # 0.1 10*3/uL (0.0-0.87); Hematocrit 34.4 VOL% (35.7-47.0); Hemoglobin 10.8 GM/DL (12.0-16.0); Immature Granulocytes % 0.5 %; Immature Granulocytes Absolute 0.04 #; Lymphocytes # 2.9 10*3/uL (1.4-4.0); Lymphocytes % 37.6 % (21.3-54.2); Mean Corpuscular HGB Conc 31.4 GM/DL (32-36); Mean Corpuscular Volume 90.8 FL (87-102); Mean Platelet Volume 9.4 FL (9.6-12.0); Monocytes % 9.1 % (1.7-12.7); Neutrophils % 51.4 % (38.7-73.9); Platelet Count 309 T/CUMM (130-400); Red Blood Count 3.79 MC/CUMM (3.8-5.5); Red Cell Distribution Width 16.5 % (9.3-17.3); White Blood Count 7.7 T/CUMM (4-12)
[2021-01-09 05:28] LABS: PT Patient Result 11.7 SECS (10.5-12.0)
[2021-01-09 05:53] LABS: Albumin 2.7 G/DL (3.4-5.0); Bilirubin,Total 0.5 MG/DL (0.2-1.0); Calcium 8.3 MG/DL (8.5-10.1); Osmolality,Calculated 282.8 MOS/KG (273-304); Potassium 3.2 MMOL/L (3.5-5.1); Total Protein 6.4 G/DL (6.4-8.2)
[2021-01-09] MEDS: LEVOTHYROXINE 125 MCG TABLET PO SCH (07:10)
[2021-01-09] MEDS ORDERED: LACTATED RINGERS 1,000 ML IV SCH (08:00)
[2021-01-09] MEDS: ASPIRIN EC 81 MG TABLET PO SCH (08:57)
[2021-01-09] MEDS ORDERED: GLYCOPYRROLATE 0.4 MG/2 ML VIAL ONE (13:54)
[2021-01-09] MEDS ORDERED: propofoL 200 MG/20 ML VIAL IV ONE (13:54)
[2021-01-09] MEDS ORDERED: LIDOCAINE 2% 5 ML VIAL ONE (13:54)
[2021-01-09] MEDS: traZODone 50 MG TABLET PO SCH (20:53)
[2021-01-09] MEDS: SERTRALINE 100 MG TABLET PO SCH (20:53)
[2021-01-10] MEDS: LACTATED RINGERS 1,000 ML IV SCH ×2 (00:36→08:34)
[2021-01-10 05:43] LABS: Basophils % 0.1 % (0.0-0.8); Eosinophils # 0.1 10*3/uL (0.0-0.87); Eosinophils % 0.9 % (0.00-10.9); Hemoglobin 10.6 GM/DL (12.0-16.0); Immature Granulocytes % 0.6 %; Immature Granulocytes Absolute 0.04 #; Lymphocytes # 2.8 10*3/uL (1.4-4.0); Lymphocytes % 39.6 % (21.3-54.2); Mean Corpuscular HGB Conc 32.1 GM/DL (32-36); Mean Corpuscular Volume 90.7 FL (87-102); Mean Platelet Volume 9.7 FL (9.6-12.0); Neutrophils % 48.8 % (38.7-73.9); Platelet Count 304 T/CUMM (130-400); Red Blood Count 3.64 MC/CUMM (3.8-5.5); Red Cell Distribution Width 16.5 % (9.3-17.3)
[2021-01-10] MEDS: LEVOTHYROXINE 125 MCG TABLET PO SCH (05:55)
[2021-01-10 07:49] LABS: Osmolality,Calculated 279.1 MOS/KG (273-304); Potassium 3.1 MMOL/L (3.5-5.1)
[2021-01-10] MEDS: ASPIRIN EC 81 MG TABLET PO SCH (08:29)
[2021-01-10] MEDS ORDERED: DEXTROSE 50% 25 GM/50 ML VIAL IV PRN (09:58)
[2021-01-10] MEDS ORDERED: GLUCAGON 1 MG VIAL IM PRN (09:58)
[2021-01-10 11:41] VITALS: BP 134/83
[2021-01-10] MEDS ORDERED: POTASSIUM CHLORIDE 20 MEQ TABLET PO ONE (14:00)
== END 2021-01-10 14:35 | disposition home or self-care (01) ==
LOC: N.5E
PROVIDERS: ADMIT Internal Medicine Gastroenterology; ATTEND Internal Medicine Gastroenterology
PROC: COLONBX (2021-01-09 12:35)